=== PATIENT | female | born 1970 | race African-American/Black ===

== ENCOUNTER 2021-04-14 10:17 | Emergency (ER) | payer MEDICARE, MEDICAID ==
[2021-04-14 11:49] LABS: BILIRUBIN,URINE NEGATIVE (NEGATIVE); GLUCOSE, URINE (UA) NEGATIVE (NEGATIVE); KETONES,URINE (UA) TRACE mg/dL (NEGATIVE); LEUKOCYTE ESTERASE, URINE NEGATIVE (NEGATIVE); NITRITE,URINE NEGATIVE (NEGATIVE); OCCULT BLOOD,URINE NEGATIVE (NEGATIVE); PROTEIN,URINE NEGATIVE (NEGATIVE); UROBILINOGEN,URINE 0.2 (NORMAL) E.U./dL (NORMAL)
[2021-04-14 11:59] LABS: CLARITY,URINE CLEAR (CLEAR); HCG UR QUAL NEGATIVE
[2021-04-14 12:14] LABS: BASOPHILS % (AUTO) 0.4 %; EOSINOPHILS # (AUTO) 0.1 10^3/uL (0.0-0.7); EOSINOPHILS % (AUTO) 1.8 %; HCT - HEMATOCRIT 27.8 % (37.0-47.0); HGB - HEMOGLOBIN 7.6 g/dL (12.0-16.0); LYMPHOCYTES # (AUTO) 2.9 10^3/uL (1.5-3.5); LYMPHOCYTES % (AUTO) 57.9 %; MEAN CORPUSCULAR HEMOGLOBIN 22.7 pg (27.0-31.0); MEAN CORPUSCULAR HGB CONC 27.3 g/dL (32.0-36.0); MEAN PLATELET VOLUME 8.6 fL (7.9-10.8); MONOCYTES # (AUTO) 0.4 10^3/uL (0.0-1.0); MONOCYTES % (AUTO) 7.4 %; NEUTROPHILS # (AUTO) 1.6 10^3/uL (1.5-6.6); NEUTROPHILS % (AUTO) 32.3 %; NRBC ABSOLUTE COUNT (AUTO) 0.05 x10^3/uL; PLT - PLATELET COUNT 163 10^3/uL (130-450); RED BLOOD COUNT 3.35 10^6/uL (4.20-5.40); RED CELL DISTRIBUTION WIDTH 21.6 % (12.0-15.0)
[2021-04-14 12:20] LABS: INR 1.2 (0.8-1.2); PT - PROTHROMBIN TIME 13.1 secs (9.9-12.6)
[2021-04-14] MEDS ORDERED: IOVERSOL 320 100 ML VIAL IVP ONE ×2 (12:22→13:02)
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
[2021-04-14 12:25] LABS: ALBUMIN 3.8 g/dL (3.2-5.5); ALBUMIN/GLOBULIN RATIO 1.1 (1.0-2.2); BILIRUBIN,TOTAL 0.6 mg/dL (0.2-1.0); CALCIUM 8.2 mg/dL (8.5-10.3); CREATININE 0.5 mg/dL (0.4-1.0); POTASSIUM 3.3 mmol/L (3.5-5.0); TOTAL PROTEIN 7.3 g/dL (6.7-8.2)
[2021-04-14] MEDS ORDERED: HYDROmorphone 1 MG/ML CARPUJECT IVP STA (12:25)
[2021-04-14] MEDS ORDERED: SODIUM CHLORIDE 0.9% 1,000 ML IV STA (12:48)
--- NOTE | 2021-04-14 13:39 | CT Report ---
PROCEDURE: Abdomen/Pelvis W INDICATIONS: melena, abd pain CONTRAST: IV CONTRAST: Optiray 320 ml: 100 PO CONTRAST: *NO PO CONTRAST TECHNIQUE: After the administration of intravenous contrast, 5 mm thick sections acquired from the diaphragms to the symphysis. 5 mm thick coronal and sagittal reformats were acquired. For radiation dose reducti on, the following was used: automated exposure control, adjustment of mA and/or kV according to kenny ent size. COMPARISON: None. FINDINGS: Image quality: Excellent. ABDOMEN: Lung bases: There is dependent atelectasis bilaterally. Heart size is normal. Solid organs: There is hypoattenuation of the liver consistent with fatty infiltration. There are 3 s mall hypervascular oval lesions in the right hepatic lobe with indistinct margins. These measure up t o 1.4 x 1.2 cm within segment 8 on series 3 image 14. A lesion is also demonstrated posteriorly in se gment 7 on the same image measuring up to 1.4 x 0.9 cm. Inferiorly within segment 6, there is a small lesion measuring 1.0 x 0.8 cm on series 3 image 26. Findings are nonspecific but suggestive of heman giomas. Gallbladder is surgically absent. Biliary system is non dilated. Pancreas enhances normally . No adrenal nodules. Kidneys demonstrate normal size and enhancement, without hydronephrosis. Peritoneum and bowel: There are postsurgical changes consistent with prior gastric bypass. Small bow el loops demonstrate normal wall thickness and caliber. The appendix demonstrates no acute inflammato ry changes to suggest appendicitis. There is diffuse mild wall thickening throughout the colon with m inimal pericolonic fat stranding consistent with a colitis. No free fluid or air. Nodes and vessels: No retroperitoneal or mesenteric adenopathy by size criteria. Aorta and inferior vena cava are normal in size. Miscellaneous: No ventral hernias. PELVIS: Genitourinary: Bladder wall thickness is normal. The uterus and ovaries appear within normal size li mits. Miscellaneous: No inguinal hernias or adenopathy. Bones: No suspicious bony lesions. No vertebral body compression fractures. IMPRESSION: 1. Diffuse mild colonic wall thickening consistent with a mild infectious or inflammatory colitis. 2. Postsurgical changes consistent with prior gastric bypass without evidence of bowel obstruction. 3. Demonstration of the hypervascular lesions in the right hepatic lobe. The findings are incompletel y characterized on the current study but are suggestive of hemangiomas. Further evaluation may be obt ained with a liver protocol MRI or CT. Reviewed by: Michael Chavarria MD on 04/14/2021 12:37 PM [place] Approved by: Michael Chavarria MD on 04/14/2021 12:37 PM [facility] Station ID: [id number]
[2021-04-14 14:03] VITALS: BP 148/88
== END 2021-04-14 14:12 | disposition home or self-care (01) ==
LOC: EDUNIT# → ED 10:17
DX: K52.9 Noninfective gastroenteritis and colitis, unspecified (principal); D64.9 Anemia, unspecified; F10.20 Alcohol dependence, uncomplicated; D18.03 Hemangioma of intra-abdominal structures; M54.50 Low back pain, unspecified; G89.29 Other chronic pain; F41.9 Anxiety disorder, unspecified; F17.200 Nicotine dependence, unspecified, uncomplicated
CPT/HCPCS: 36415; 74177; 80053; 81003; 81025; 83690; 85025; 85610; 96374; 99284; J1170; Q9967; 81001; 87086